=== PATIENT | male | born 1940 | race Caucasian/White ===

== ENCOUNTER → 2023-04-29 08:14 | Outpatient (REF) | payer OTHER, SELFPAY ==
[2023-04-29 09:10] LABS: % Basophils 0.3 % (0-2); % Eosinophils 2.8 % (0-6); % Immature Granulocytes 0.3 % (0-0.5); % Lymphocytes 19.9 % (20.5-51.1); % Monocytes 9.6 % (1.7-9.3); % Neutrophils 67.1 % (42.2-75.2); Absolute Eosinophils 0.2 10^3/uL (0-0.7); Absolute Lymphocytes 1.3 10^3/uL (1.2-3.4); Absolute Monocytes 0.6 10^3/uL (0.1-0.6); Absolute Neutrophils 4.5 10^3/uL (1.4-6.5); Hematocrit 40.3 % (39.0-52.0); Hemoglobin 13.3 g/dL (13.0-18.0); Mean Corpuscular Hgb 33.3 pg (27.0-31.0); Mean Platelet Volume 10.1 fL (7.4-10.4); Nucleated Red Blood Cells % 0 % (-); Platelet Count 163 10^3/uL (130-400); Red Blood Cell Count 3.99 10^6/uL (4.70-6.10); Red Cell Dist. Width 13.6 % (11.5-14.5); White Blood Cell Count 6.7 10^3/uL (4.8-10.8)
[2023-04-29 09:29] LABS: Glycohemoglobin (HgbA1c) 6.2 % (4.0-5.6)
[2023-04-29 10:07] LABS: ALT (SGPT) 16 U/L (0-50); AST (SGOT) 24 U/L (17-59); Albumin 3.9 g/dl (3.5-5.0); Alkaline Phosphatase 73 U/L (38-126); Blood Urea Nitrogen 21 mg/dl (9-20); Calcium 8.9 mg/dl (8.4-10.2); Carbon Dioxide 24 mmol/L (22-30); Chloride 111 mmol/L (98-107); Glucose 108 mg/dl (70-99); HDL Cholesterol 30 mg/dl; Iron 82 ug/dl (49-181); LDL Cholesterol, Calculated 34 mg/dl; Potassium 4.6 mmol/L (3.5-5.1); Sodium 140 mmol/L (135-145); Total Bilirubin 0.8 mg/dl (0.2-1.3); Total Cholesterol 91 mg/dl (50-199); Total Protein 6.3 g/dl (6.3-8.2); Triglyceride 136 mg/dl (10-149); Very Low Density Lipoprotein 27 mg/dl (0-30); eGFR > 60.00
[2023-04-29 10:16] LABS: Percent Saturation 26 % (20-50); TSH Reflex To Free T4 1.95 uIU/ml (0.47-4.68); Total Iron Binding Capacity 311 ug/dl (261-462)
== END ==
LOC: REG 08:14
PROVIDERS: ATTENDING PHYSICIAN Nurse Practitioner Family
DX: E11.9 Type 2 diabetes mellitus without complications (principal); D64.9 Anemia, unspecified; R53.83 Other fatigue
CPT/HCPCS: 36415; 80053; 80061; 82728; 83036; 83540; 83550; 84443; 85025

== ENCOUNTER → 2023-07-23 08:27 | Outpatient (REF) | payer OTHER, SELFPAY ==
[2023-07-23 10:05] LABS: % Basophils 0.5 % (0-2); % Eosinophils 2.8 % (0-6); % Immature Granulocytes 0.3 % (0-0.5); % Lymphocytes 16.9 % (20.5-51.1); % Monocytes 7.4 % (1.7-9.3); % Neutrophils 72.1 % (42.2-75.2); Absolute Eosinophils 0.2 10^3/uL (0-0.7); Absolute Lymphocytes 1.3 10^3/uL (1.2-3.4); Absolute Monocytes 0.6 10^3/uL (0.1-0.6); Absolute Neutrophils 5.6 10^3/uL (1.4-6.5); Mean Corp Hgb Conc. 33.3 g/dL (33.0-37.0); Mean Platelet Volume 10.1 fL (7.4-10.4); Nucleated Red Blood Cells % 0 % (-); Platelet Count 178 10^3/uL (130-400); Red Blood Cell Count 3.94 10^6/uL (4.70-6.10); Red Cell Dist. Width 13.2 % (11.5-14.5); White Blood Cell Count 7.8 10^3/uL (4.8-10.8)
[2023-07-23 10:25] LABS: Glycohemoglobin (HgbA1c) 6.1 % (4.0-5.6)
[2023-07-23 10:49] LABS: Microalbumin, Random Urine < 0.6 mg/dl (0.6-1.7)
[2023-07-23 11:08] LABS: ALT (SGPT) 13 U/L (0-50); AST (SGOT) 25 U/L (17-59); Alkaline Phosphatase 80 U/L (38-126); Blood Urea Nitrogen 26 mg/dl (9-20); Calcium 9.4 mg/dl (8.4-10.2); Carbon Dioxide 26 mmol/L (22-30); Chloride 107 mmol/L (98-107); Glucose 107 mg/dl (70-99); HDL Cholesterol 30 mg/dl; Iron 99 ug/dl (49-181); LDL Cholesterol, Calculated 38 mg/dl; Sodium 141 mmol/L (135-145); Total Bilirubin 1.2 mg/dl (0.2-1.3); Total Cholesterol 97 mg/dl (50-199); Total Protein 6.6 g/dl (6.3-8.2); Triglyceride 147 mg/dl (10-149); Very Low Density Lipoprotein 29 mg/dl (0-30); eGFR > 60.00
[2023-07-23 11:18] LABS: Percent Saturation 32 % (20-50); Total Iron Binding Capacity 309 ug/dl (261-462)
[2023-07-23 11:38] LABS: TSH Reflex To Free T4 1.78 uIU/ml (0.47-4.68)
[2023-07-23 11:41] LABS: Ferritin 52.8 ng/ml (17.9-464.0)
[2023-07-25 00:07] LABS: Total T3 (Sendout) 97 ng/dL (80-200)
== END ==
LOC: REG 08:27
PROVIDERS: ATTENDING PHYSICIAN Family Medicine
DX: E11.40 Type 2 diabetes mellitus with diabetic neuropathy, unspecified (principal); D64.9 Anemia, unspecified
CPT/HCPCS: 36415; 80053; 80061; 82043; 82570; 82728; 83036; 83540; 83550; 84443; 84480; 85025

== ENCOUNTER → 2024-02-19 11:42 | Outpatient (REF) | payer OTHER, SELFPAY ==
[2024-02-19 12:30] LABS: % Basophils 0.4 % (0-2); % Eosinophils 2.8 % (0-6); % Immature Granulocytes 0.5 % (0-0.5); % Lymphocytes 16.5 % (20.5-51.1); % Neutrophils 71.8 % (42.2-75.2); Absolute Eosinophils 0.2 10^3/uL (0-0.7); Absolute Lymphocytes 1.4 10^3/uL (1.2-3.4); Absolute Monocytes 0.7 10^3/uL (0.1-0.6); Absolute Neutrophils 5.9 10^3/uL (1.4-6.5); Hematocrit 41.6 % (39.0-52.0); Hemoglobin 14.3 g/dL (13.0-18.0); Mean Corp Hgb Conc. 34.4 g/dL (33.0-37.0); Mean Corpuscular Hgb 33.7 pg (27.0-31.0); Mean Corpuscular Volume 98.1 fL (80.0-94.0); Mean Platelet Volume 9.9 fL (7.4-10.4); Nucleated Red Blood Cells % 0 % (-); Platelet Count 169 10^3/uL (130-400); Red Blood Cell Count 4.24 10^6/uL (4.70-6.10); Red Cell Dist. Width 13.5 % (11.5-14.5); White Blood Cell Count 8.2 10^3/uL (4.8-10.8)
[2024-02-19 15:28] LABS: Blood Urea Nitrogen 22 mg/dl (9-20); Calcium 9.1 mg/dl (8.4-10.2); Carbon Dioxide 26 mmol/L (22-30); Chloride 106 mmol/L (98-107); Glucose 109 mg/dl (70-99); Sodium 143 mmol/L (135-145); eGFR > 60.00
== END ==
LOC: REG 11:42
PROVIDERS: ATTENDING PHYSICIAN Internal Medicine Cardiovascular Disease; FAMILY PHYSICIAN Family Medicine
DX: I48.0 Paroxysmal atrial fibrillation (principal); R42 Dizziness and giddiness
CPT/HCPCS: 36415; 80048; 85025

== ENCOUNTER → 2024-03-25 14:02 | Outpatient (REF) | payer OTHER, SELFPAY | LOC: RCS 14:02 | PROVIDERS: ATTENDING PHYSICIAN Internal Medicine Cardiovascular Disease; FAMILY PHYSICIAN Family Medicine | DX: I48.0 Paroxysmal atrial fibrillation (principal); I48.19 Other persistent atrial fibrillation; I25.10 Atherosclerotic heart disease of native coronary artery without angina pectoris; Z95.2 Presence of prosthetic heart valve | CPT/HCPCS: 71046; 93306 ==

== ENCOUNTER 2024-12-14 14:56 | Emergency (ER) | payer OTHER, SELFPAY ==
[2024-12-14 15:07] VITALS: BP 138/86
--- NOTE | 2024-12-14 16:10 | ED.GENMED ---
History of Present Illness
General
Chief Complaint: Musculo-Skeletal Complaint
Source: patient
Exam Limitations: none
Time Seen by Provider: 12/14/24 15:35
Nursing documentation reviewed up to this point in time: agreed with
History of Present Illness
History of Present Illness:
84 yr old male presents to the ED for evaluation of left elbow pain. pt woke up with pain this morning. He denies any injury but reports he was doing gardening yesterday. He denies any swelling fever chills, redness. He is right hand dominant.
He does report that discomfort has improved since this morning.
He is on Eliquis and took Tylenol for pain today.
Past History
Past History
ED Past Medical History: CAD, HTN, Hypercholesterolemia, Valvular disease and Other (Gout )
ED Past Surgical History: Cardiac (PTCA with stents October 2009 , TAVR, pacemaker 05/2018, cardiac stent 2009) and Other (Cataract removal )
Social History
Tobacco: Non-smoker
Alcohol: Occasional
Drug: None
Personal:
Living: with family
Employment: Retired
Family History
Family History: Hypertension
Phy Exam
General Physical Exam
General Presentation: no apparent distress
General age: appears stated age
General Skin: warm and dry
General Habitus: normal
General Mental: alert
General Hydration: appears well hydrated
Neurological Exam
Neurological Exam: alert and oriented x3
Musculoskeletal Exam
Musculoskeletal Exam: other (Right upper extremity strong pulses no obvious swelling to mildly tender to proximal ulna region however no erythema no obvious swelling to the bursa; patient has very good flexion and extension)
Skin Exam
Skin Exam: normal color and warm/dry
Psychiatric Exam
Psychiatric Exam: normal mood/affect
Course
Orders/Labs/Results
Orders:
Orders
12/14/24 15:09
Elbow, Right 3 View [CR Elbow - Right Min 3 Views] Urgent
Comment:
Reason For Exam: pain
Vital Signs
Initial and Last Documented VS:
Initial Vital Signs
Temp Pulse Resp BP Pulse Ox
98.9 F 84 16 138/86 98
12/14/24 15:07 12/14/24 15:07 12/14/24 15:07 12/14/24 15:07 12/14/24 15:07
Last Documented Vital Signs
Temp Pulse Resp BP Pulse Ox
98.9 F 84 16 138/86 98
12/14/24 15:07 12/14/24 15:07 12/14/24 16:00 12/14/24 15:07 12/14/24 15:07
MDM/Problems Addressed
Differential Diagnosis Includes:
Not limited to tendinitis ligament sprain strain injury , bursitis less likely septic joint
MDM/Problems Addressed:
Patient was doing a lot of gardening with up today with right elbow discomfort. He denies any injury or trauma. Denies any fever chills. He has good range of motion there is no obvious swelling on exam and no obvious redness. No evidence of
septic joint x-ray does show an anterior fat pad sign potentially effusion or ligament injury there also calcification of the soft tissue lateral to the humerus suggesting calcific tendinitis. Patient is very well-appearing in fact symptoms are
actually improving since the start of this morning. Will DC in a sling for rest discussed ice and Tylenol and outpatient Ortho follow-up
Chronic conditions affecting care:
On Eliquis and therefore cannot take NSAIDs will DC on Tylenol
*Radiology
Radiology exam reviewed: radiology read reviewed
*Pulse Oximetry
SaO2: 98
Oxygen Mode of Delivery: Room air
Patient hypoxic: no
*Critical Care Note
Total Time (30-74mins, 75-104mins- exclusive of procedures): Not Applicable
ED Attending Note
-
Portions of this chart may have been created with voice recognition software.� Occasional wrong word or��sound alike� substitutions may have occurred due to the inherent limitations of voice recognition software.
Discharge Plan
Departure
Patient Disposition: Home (Routine Discharge)
Date of Disposition: 12/14/24
Time of Disposition: 16:23
Patient with high blood pressure during this ER visit?: Yes
Condition: Fair
Covid-19: Not Applicable
Discharge Problem:
Elbow pain
Instructions: How to Use a Shoulder Sling, BLOOD PRESSURE
Prescriptions:
No Action
paroxetine HCl 10 MG tablet
10 mg PO HS
atorvastatin [Lipitor] 80 MG tablet
80 mg PO HS
isosorbide mononitrate 60 MG tablet extended release 24 hr
60 mg PO HS
pantoprazole 40 MG tablet,delayed release (DR/EC)
40 mg PO DAILY
ezetimibe 10 MG tablet
10 mg PO DAILY
aspirin 81 MG tablet,chewable
81 mg PO HS
losartan 100 mg tablet
100 mg PO DAILY
sotalol 80 MG tablet
80 mg PO BID
furosemide [Lasix] 20 mg tablet
20 mg PO Q48H
ferrous sulfate 324 mg (65 mg iron) tablet,delayed release (DR/EC)
324 mg PO DAILY
cyanocobalamin (vitamin B-12) 1,000 mcg capsule
1,000 mcg PO DAILY
Eliquis 5 mg Tablet
5 mg PO BID
solifenacin 5 mg Tablet
5 mg PO DAILY
Referrals:
Sintia Mathews I., DO [Active, Orthopedics]
Jaelyn Brannon, DO [Family Provider]
Activity Restrictions/Additional Instructions:
As discussed wear sling for support but remove several times a day and do range of motion exercises to your shoulder very gently. Ice the affected area for the next 48 hours 20 minutes at a time several times a day. Take Tylenol for discomfort.
Please follow-up with orthopedics in the next several days call tomorrow to make an appointment. Return if any worsening of symptoms include increased pain swelling redness fever/chills.
Interventions
Interventions:
*Risk Screen - Suicide Last Done: 12/14/24 15:07
*General Assessment Last Done: 12/14/24 15:07
*Neglect/Abuse Screening Last Done: 12/14/24 15:07
*ED- Fall Risk Assessment Last Done: 12/14/24 15:07
*ED COVID-19 Vaccine History Last Done: 12/14/24 15:07
*ED Influenza Vaccine History Last Done: 12/14/24 15:07
ED-Musculoskeletal Assessment Last Done: 12/14/24 16:08
Discharge Date and Time
Print Language: GAMBIAN
== END 2024-12-14 16:30 | disposition home or self-care (01) ==
LOC: EMR 14:56
PROVIDERS: EMERGENCY PHYSICIAN Emergency Medicine; FAMILY PHYSICIAN Family Medicine
DX: M25.522 Pain in left elbow (principal); I25.10 Atherosclerotic heart disease of native coronary artery without angina pectoris; I10 Essential (primary) hypertension; E78.00 Pure hypercholesterolemia, unspecified; M10.9 Gout, unspecified; Z79.01 Long term (current) use of anticoagulants; Z95.2 Presence of prosthetic heart valve; Z95.5 Presence of coronary angioplasty implant and graft; Z95.0 Presence of cardiac pacemaker; Z82.49 Family history of ischemic heart disease and other diseases of the circulatory system
CPT/HCPCS: 99283; 73080

== ENCOUNTER → 2025-02-21 09:34 | Outpatient (REF) | payer OTHER, SELFPAY ==
[2025-02-21 16:37] LABS: Urine Character Clear (Clear)
[2025-02-21 16:56] LABS: Urine Red Blood Cell 0-2 /HPF (0-2); Urine Squamous Cell 0-2 /LPF (Few); Urine White Cell 0-2 /HPF (0-5)
== END ==
LOC: CLAB 09:34
PROVIDERS: ATTENDING PHYSICIAN Nurse Practitioner
DX: N39.0 Urinary tract infection, site not specified (principal)
CPT/HCPCS: 81003; 81015; 87086